=== PATIENT | female | born 1945 | race Caucasian/White ===

== ENCOUNTER 2019-03-31 16:10 | Inpatient (IN) | payer MEDICARE ==
[~2019-03-31] VITALS: Ht 162.6 cm; Wt 51.9 kg
[2019-03-31] MEDS ORDERED: BUDE3CAP2 PO (18:49)
[2019-03-31] MEDS ORDERED: POTA20TA89 PO (18:49)
[2019-03-31] MEDS ORDERED: LOPE2CAP PO (18:49)
[2019-03-31] MEDS ORDERED: MIRT15TA4 PO (18:49)
[2019-03-31] MEDS ORDERED: DRON2.5C PO (18:49)
[2019-03-31] MEDS ORDERED: PROC10TA2 PO (18:49)
[2019-03-31] MEDS ORDERED: COLE1TAB2 PO (18:49)
[2019-03-31] MEDS ORDERED: LEVO75TA5 PO (19:01)
[2019-03-31] MEDS ORDERED: ATOR20TA PO (19:01)
[2019-03-31] MEDS ORDERED: hydrALAzine 20 MG/ML, 1ML IVPush PRN (19:30)
[2019-03-31] MEDS ORDERED: ACETAMINOPHEN 325 MG TABLET PO PRN (19:30)
[2019-03-31] MEDS ORDERED: LOPERAMIDE 2 MG CAPSULE PO PRN (20:00)
[2019-03-31 20:07] VITALS: BP 102/64
[2019-03-31 20:08] LABS: BASOPHILS % (AUTO) 0 % (0-1); EOSINOPHILS % (AUTO) 0 % (1-7); LYMPHOCYTES # (AUTO) 0.97 x10^3/uL (1-3.4); LYMPHOCYTES % (AUTO) 24 % (22-44); MD NO; MEAN CORPUSCULAR HEMOGLOBIN 29.8 pg (27.0-34.8); MEAN CORPUSCULAR HGB CONC 32.5 g/dL (32.4-35.8); MEAN CORPUSCULAR VOLUME 91.9 fL (80-100); MEAN PLATELET VOLUME 7.7 fL (7.4-10.4); MONOCYTES % (AUTO) 8 % (2-9); NEUTROPHILS # (AUTO) 2.75 x10^3/uL (1.8-6.8); NEUTROPHILS % (AUTO) 68 % (42-75); PLATELET COUNT 213 x10^3/uL (130-400); RED BLOOD COUNT 3.69 x10^6/uL (3.82-5.3); RED CELL DISTRIBUTION WIDTH 13.8 % (9.6-15.2)
[2019-03-31] MEDS: MIRTAZAPINE 15 MG TABLET PO SCH (20:10)
[2019-03-31] MEDS: DRONABINOL 2.5 MG CAPSULE PO SCH (20:10)
[2019-03-31] MEDS: ATORVASTATIN 20 MG TABLET PO SCH (20:10)
[2019-03-31] MEDS: SODIUM CHLORIDE 0.9% 1,000 ML IV SCH (20:10)
[2019-03-31 20:17] LABS: ANION GAP 6 mmol/L (5-15); CALCIUM 8.5 mg/dL (8.5-10.1); CHLORIDE 111 mmol/L (98-107); CREATININE 0.88 mg/dL (0.55-1.02)
[2019-03-31] MEDS ORDERED: MOXI3DRO11 RIGHTEYE (23:54)
[2019-03-31] MEDS ORDERED: PRED5DRO20 RIGHTEYE (23:54)
[2019-04-01 01:26] VITALS: BP 106/62
[2019-04-01 04:54] LABS: BASOPHILS # (AUTO) 0.01 x10^3/uL (0-0.1); BASOPHILS % (AUTO) 0 % (0-1); EOSINOPHILS # (AUTO) 0.03 x10^3/uL (0-0.4); EOSINOPHILS % (AUTO) 1 % (1-7); LYMPHOCYTES # (AUTO) 1.63 x10^3/uL (1-3.4); LYMPHOCYTES % (AUTO) 35 % (22-44); MD NO; MEAN CORPUSCULAR HEMOGLOBIN 29.8 pg (27.0-34.8); MEAN CORPUSCULAR HGB CONC 32.7 g/dL (32.4-35.8); MEAN CORPUSCULAR VOLUME 91.1 fL (80-100); MONOCYTES # (AUTO) 0.49 x10^3/uL (0.2-0.8); MONOCYTES % (AUTO) 11 % (2-9); NEUTROPHILS # (AUTO) 2.44 x10^3/uL (1.8-6.8); NEUTROPHILS % (AUTO) 53 % (42-75); PLATELET COUNT 196 x10^3/uL (130-400); RED BLOOD COUNT 3.58 x10^6/uL (3.82-5.3); RED CELL DISTRIBUTION WIDTH 14.1 % (9.6-15.2)
[2019-04-01 05:04] LABS: ALANINE AMINOTRANSFERASE 13 U/L (12-78); ALBUMIN 2.7 g/dL (3.4-5.0); ANION GAP 7 mmol/L (5-15); CALCIUM 8.1 mg/dL (8.5-10.1); CHLORIDE 112 mmol/L (98-107)
[2019-04-01 05:14] LABS: ALKALINE PHOSPHATASE 44 U/L (45-117); BILIRUBIN,TOTAL 0.3 mg/dL (0.2-1.0); CREATININE 0.87 mg/dL (0.55-1.02); THYROID STIMULATING HORMONE 0.784 mIU/L (0.358-3.740)
[2019-04-01 07:14] VITALS: BP 119/66
[2019-04-01] MEDS: SODIUM CHLORIDE 0.9% 1,000 ML IV SCH ×2 (09:00→22:56)
[2019-04-01] MEDS: BUDESONIDE 3 MG CAP DR.ER PO SCH (09:00)
[2019-04-01] MEDS: COLESTIPOL 1 GM TABLET PO SCH ×2 (09:01→12:32)
[2019-04-01] MEDS: LEVOTHYROXINE 75 MCG TABLET PO SCH (09:01)
[2019-04-01] MEDS: DRONABINOL 2.5 MG CAPSULE PO SCH ×2 (09:01→20:35)
[2019-04-01 12:58] VITALS: BP 105/61
[2019-04-01] MEDS: MOXIFLOXACIN OPHTH O.5%, 3ML RIGHTEYE SCH ×2 (13:00→17:45)
[2019-04-01 13:16] LABS: CHOL/HDL RATIO 4.1; LDL/HDL RATIO 2.6 (0.5-3.0)
[2019-04-01] MEDS: predniSOLONE OPHTH SUSP 1%, 5ML RIGHTEYE SCH ×2 (16:39→20:35)
[2019-04-01 18:45] VITALS: BP 144/67
[2019-04-01 19:26] LABS: MICROSCOPIC NOT IND
[2019-04-01 19:49] LABS: CULTURE INDICATED? NO
[2019-04-01] MEDS: ATORVASTATIN 20 MG TABLET PO SCH (20:35)
[2019-04-01] MEDS: MIRTAZAPINE 15 MG TABLET PO SCH (20:35)
[2019-04-02 00:54] VITALS: BP 103/64
[2019-04-02 05:49] LABS: BASOPHILS # (AUTO) 0.02 x10^3/uL (0-0.1); BASOPHILS % (AUTO) 0 % (0-1); EOSINOPHILS # (AUTO) 0.02 x10^3/uL (0-0.4); EOSINOPHILS % (AUTO) 1 % (1-7); LYMPHOCYTES % (AUTO) 35 % (22-44); MD NO; MEAN CORPUSCULAR HEMOGLOBIN 30.1 pg (27.0-34.8); MEAN CORPUSCULAR HGB CONC 32.9 g/dL (32.4-35.8); MEAN CORPUSCULAR VOLUME 91.4 fL (80-100); MEAN PLATELET VOLUME 7.6 fL (7.4-10.4); MONOCYTES # (AUTO) 0.38 x10^3/uL (0.2-0.8); MONOCYTES % (AUTO) 7 % (2-9); NEUTROPHILS # (AUTO) 2.93 x10^3/uL (1.8-6.8); NEUTROPHILS % (AUTO) 57 % (42-75); PLATELET COUNT 206 x10^3/uL (130-400); RED BLOOD COUNT 3.62 x10^6/uL (3.82-5.3); RED CELL DISTRIBUTION WIDTH 13.9 % (9.6-15.2)
[2019-04-02] MEDS: predniSOLONE OPHTH SUSP 1%, 5ML RIGHTEYE SCH ×4 (05:53→21:00)
[2019-04-02 05:56] LABS: ALBUMIN 2.8 g/dL (3.4-5.0); ANION GAP 4 mmol/L (5-15); CALCIUM 8.1 mg/dL (8.5-10.1); CHLORIDE 109 mmol/L (98-107)
[2019-04-02 06:19] LABS: ALANINE AMINOTRANSFERASE 14 U/L (12-78); ALKALINE PHOSPHATASE 49 U/L (45-117); BILIRUBIN,TOTAL 0.4 mg/dL (0.2-1.0); CREATININE 0.86 mg/dL (0.55-1.02); TOTAL PROTEIN 6.1 g/dL (6.4-8.2)
[2019-04-02 07:00] VITALS: BP 105/63
[2019-04-02] MEDS ORDERED: MAGNESIUM SULFATE PMX 2GM/50ML 50 ML IV ONE (07:00)
[2019-04-02] MEDS: MOXIFLOXACIN OPHTH O.5%, 3ML RIGHTEYE SCH ×3 (08:00→18:00)
[2019-04-02] MEDS ORDERED: GADOBUTROL 7.5 MMOL/7.5 ML PFS ONE (08:47)
[2019-04-02] MEDS: COLESTIPOL 1 GM TABLET PO SCH (09:00)
[2019-04-02] MEDS: BUDESONIDE 3 MG CAP DR.ER PO SCH (10:11)
[2019-04-02] MEDS: DRONABINOL 2.5 MG CAPSULE PO SCH ×2 (10:11→21:13)
[2019-04-02] MEDS: LEVOTHYROXINE 75 MCG TABLET PO SCH (10:11)
[2019-04-02] MEDS: MAGNESIUM OXIDE 400 MG TABLET PO SCH (10:11)
[2019-04-02 12:14] VITALS: BP 101/58
[2019-04-02] MEDS: ACYCLOVIR 500 MG in SODIUM CHLORIDE 0.9% 100 ML IV SCH ×2 (14:26→22:12)
[2019-04-02] MEDS: SODIUM CHLORIDE 0.9% 1,000 ML IV SCH (17:03)
[2019-04-02 19:04] LABS: GLUCOSE, CSF 37 mg/dL (40-80); TOTAL PROTEIN,CSF 137 mg/dL (15-45)
[2019-04-02 20:52] VITALS: BP 97/59
[2019-04-02] MEDS: MIRTAZAPINE 15 MG TABLET PO SCH (21:13)
[2019-04-02] MEDS: ATORVASTATIN 20 MG TABLET PO SCH (21:13)
[2019-04-03 02:30] VITALS: BP 85/46
[2019-04-03] MEDS: SODIUM CHLORIDE 0.9% 1,000 ML IV SCH (05:12)
[2019-04-03] MEDS: ACYCLOVIR 500 MG in SODIUM CHLORIDE 0.9% 100 ML IV SCH ×3 (05:13→21:22)
[2019-04-03] MEDS: predniSOLONE OPHTH SUSP 1%, 5ML RIGHTEYE SCH ×4 (06:00→21:00)
[2019-04-03 06:06] LABS: BASOPHILS # (AUTO) 0.01 x10^3/uL (0-0.1); BASOPHILS % (AUTO) 0 % (0-1); EOSINOPHILS # (AUTO) 0.03 x10^3/uL (0-0.4); EOSINOPHILS % (AUTO) 0 % (1-7); LYMPHOCYTES # (AUTO) 1.39 x10^3/uL (1-3.4); LYMPHOCYTES % (AUTO) 19 % (22-44); MD NO; MEAN CORPUSCULAR HEMOGLOBIN 28.8 pg (27.0-34.8); MEAN CORPUSCULAR HGB CONC 31.6 g/dL (32.4-35.8); MEAN CORPUSCULAR VOLUME 91.1 fL (80-100); MEAN PLATELET VOLUME 7.6 fL (7.4-10.4); MONOCYTES % (AUTO) 7 % (2-9); NEUTROPHILS # (AUTO) 5.31 x10^3/uL (1.8-6.8); NEUTROPHILS % (AUTO) 73 % (42-75); PLATELET COUNT 199 x10^3/uL (130-400); RED BLOOD COUNT 3.77 x10^6/uL (3.82-5.3); RED CELL DISTRIBUTION WIDTH 13.5 % (9.6-15.2)
[2019-04-03 06:09] LABS: ANION GAP 6 mmol/L (5-15); CHLORIDE 109 mmol/L (98-107); CREATININE 1.18 mg/dL (0.55-1.02)
[2019-04-03 07:49] VITALS: BP 112/64
[2019-04-03] MEDS: COLESTIPOL 1 GM TABLET PO SCH (09:03)
[2019-04-03] MEDS: BUDESONIDE 3 MG CAP DR.ER PO SCH (09:03)
[2019-04-03] MEDS: LEVOTHYROXINE 75 MCG TABLET PO SCH (09:04)
[2019-04-03] MEDS: DRONABINOL 2.5 MG CAPSULE PO SCH ×2 (09:04→21:22)
[2019-04-03] MEDS: MAGNESIUM OXIDE 400 MG TABLET PO SCH (09:04)
[2019-04-03] MEDS: MOXIFLOXACIN OPHTH O.5%, 3ML RIGHTEYE SCH ×3 (09:04→17:00)
[2019-04-03 12:57] VITALS: BP 106/68
[2019-04-03 19:15] VITALS: BP 109/65
[2019-04-03] MEDS: MIRTAZAPINE 15 MG TABLET PO SCH (21:22)
[2019-04-03] MEDS: ATORVASTATIN 20 MG TABLET PO SCH (21:22)
[2019-04-04 01:29] VITALS: BP 118/70
[2019-04-04] MEDS: SODIUM CHLORIDE 0.9% 1,000 ML IV SCH ×2 (05:12→22:15)
[2019-04-04] MEDS: ACYCLOVIR 500 MG in SODIUM CHLORIDE 0.9% 100 ML IV SCH ×3 (05:12→22:15)
[2019-04-04] MEDS: predniSOLONE OPHTH SUSP 1%, 5ML RIGHTEYE SCH ×4 (05:13→21:00)
[2019-04-04 05:32] LABS: BASOPHILS # (AUTO) 0.02 x10^3/uL (0-0.1); BASOPHILS % (AUTO) 0 % (0-1); EOSINOPHILS # (AUTO) 0.05 x10^3/uL (0-0.4); EOSINOPHILS % (AUTO) 1 % (1-7); LYMPHOCYTES # (AUTO) 1.38 x10^3/uL (1-3.4); LYMPHOCYTES % (AUTO) 28 % (22-44); MD NO; MEAN CORPUSCULAR HGB CONC 32.6 g/dL (32.4-35.8); MONOCYTES # (AUTO) 0.46 x10^3/uL (0.2-0.8); MONOCYTES % (AUTO) 9 % (2-9); NEUTROPHILS # (AUTO) 2.99 x10^3/uL (1.8-6.8); NEUTROPHILS % (AUTO) 61 % (42-75); PLATELET COUNT 186 x10^3/uL (130-400); RED BLOOD COUNT 3.58 x10^6/uL (3.82-5.3); RED CELL DISTRIBUTION WIDTH 13.9 % (9.6-15.2)
[2019-04-04 05:42] LABS: CALCIUM 8.1 mg/dL (8.5-10.1); CHLORIDE 111 mmol/L (98-107)
[2019-04-04 05:46] LABS: ANION GAP 7 mmol/L (5-15); CREATININE 1.25 mg/dL (0.55-1.02)
[2019-04-04 06:51] VITALS: BP 112/68
[2019-04-04] MEDS: MOXIFLOXACIN OPHTH O.5%, 3ML RIGHTEYE SCH ×3 (08:00→18:25)
[2019-04-04] MEDS: DRONABINOL 2.5 MG CAPSULE PO SCH ×2 (09:49→22:15)
[2019-04-04] MEDS: MAGNESIUM OXIDE 400 MG TABLET PO SCH (09:49)
[2019-04-04] MEDS: LEVOTHYROXINE 75 MCG TABLET PO SCH (09:49)
[2019-04-04] MEDS: BUDESONIDE 3 MG CAP DR.ER PO SCH (09:49)
[2019-04-04] MEDS: COLESTIPOL 1 GM TABLET PO SCH (09:50)
[2019-04-04 13:55] VITALS: BP 113/68
[2019-04-04 19:12] VITALS: BP 123/73
[2019-04-04] MEDS: MIRTAZAPINE 15 MG TABLET PO SCH (22:15)
[2019-04-04] MEDS: ATORVASTATIN 20 MG TABLET PO SCH (22:15)
[2019-04-05 01:35] VITALS: BP 98/50
[2019-04-05] MEDS: predniSOLONE OPHTH SUSP 1%, 5ML RIGHTEYE SCH ×4 (05:39→20:23)
[2019-04-05] MEDS: ACYCLOVIR 500 MG in SODIUM CHLORIDE 0.9% 100 ML IV SCH ×3 (05:39→21:36)
[2019-04-05 05:43] LABS: BASOPHILS # (AUTO) 0.01 x10^3/uL (0-0.1); BASOPHILS % (AUTO) 0 % (0-1); EOSINOPHILS # (AUTO) 0.04 x10^3/uL (0-0.4); EOSINOPHILS % (AUTO) 1 % (1-7); LYMPHOCYTES % (AUTO) 36 % (22-44); MD NO; MEAN CORPUSCULAR HEMOGLOBIN 29.2 pg (27.0-34.8); MEAN CORPUSCULAR HGB CONC 32.5 g/dL (32.4-35.8); MEAN CORPUSCULAR VOLUME 89.7 fL (80-100); MEAN PLATELET VOLUME 7.5 fL (7.4-10.4); MONOCYTES # (AUTO) 0.46 x10^3/uL (0.2-0.8); MONOCYTES % (AUTO) 11 % (2-9); NEUTROPHILS # (AUTO) 2.19 x10^3/uL (1.8-6.8); NEUTROPHILS % (AUTO) 52 % (42-75); PLATELET COUNT 175 x10^3/uL (130-400); RED CELL DISTRIBUTION WIDTH 13.7 % (9.6-15.2)
[2019-04-05 05:47] LABS: CALCIUM 8.2 mg/dL (8.5-10.1); CHLORIDE 112 mmol/L (98-107)
[2019-04-05 05:53] LABS: ALANINE AMINOTRANSFERASE 12 U/L (12-78); ALBUMIN 2.8 g/dL (3.4-5.0); ALKALINE PHOSPHATASE 51 U/L (45-117); ANION GAP 6 mmol/L (5-15); BILIRUBIN,TOTAL 0.5 mg/dL (0.2-1.0); CREATININE 1.04 mg/dL (0.55-1.02); TOTAL PROTEIN 6.1 g/dL (6.4-8.2)
[2019-04-05 08:14] VITALS: BP 120/69
[2019-04-05] MEDS: MAGNESIUM OXIDE 400 MG TABLET PO SCH (08:27)
[2019-04-05] MEDS: DRONABINOL 2.5 MG CAPSULE PO SCH ×2 (08:27→20:23)
[2019-04-05] MEDS: BUDESONIDE 3 MG CAP DR.ER PO SCH (08:27)
[2019-04-05] MEDS: LEVOTHYROXINE 75 MCG TABLET PO SCH (08:28)
[2019-04-05] MEDS: COLESTIPOL 1 GM TABLET PO SCH (08:28)
[2019-04-05] MEDS: MOXIFLOXACIN OPHTH O.5%, 3ML RIGHTEYE SCH ×3 (08:28→17:27)
[2019-04-05] MEDS: SODIUM CHLORIDE 0.9% 1,000 ML IV SCH (12:35)
[2019-04-05 13:02] VITALS: BP 102/60
[2019-04-05 19:24] VITALS: BP 129/74
[2019-04-05] MEDS: ATORVASTATIN 20 MG TABLET PO SCH (20:23)
[2019-04-05] MEDS: MIRTAZAPINE 15 MG TABLET PO SCH (20:23)
[2019-04-06] MEDS: SODIUM CHLORIDE 0.9% 1,000 ML IV SCH ×2 (02:13→16:41)
[2019-04-06 02:41] VITALS: BP 156/64
[2019-04-06] MEDS: ACYCLOVIR 500 MG in SODIUM CHLORIDE 0.9% 100 ML IV SCH ×3 (05:16→21:20)
[2019-04-06] MEDS: predniSOLONE OPHTH SUSP 1%, 5ML RIGHTEYE SCH ×4 (05:16→20:10)
[2019-04-06 06:47] VITALS: BP 118/69
[2019-04-06] MEDS: BUDESONIDE 3 MG CAP DR.ER PO SCH (09:17)
[2019-04-06] MEDS: MAGNESIUM OXIDE 400 MG TABLET PO SCH (09:17)
[2019-04-06] MEDS: MOXIFLOXACIN OPHTH O.5%, 3ML RIGHTEYE SCH ×3 (09:17→17:21)
[2019-04-06] MEDS: DRONABINOL 2.5 MG CAPSULE PO SCH ×2 (09:17→20:10)
[2019-04-06] MEDS: COLESTIPOL 1 GM TABLET PO SCH (09:17)
[2019-04-06] MEDS: LEVOTHYROXINE 75 MCG TABLET PO SCH (09:17)
[2019-04-06 12:40] VITALS: BP 107/67
[2019-04-06 18:48] VITALS: BP 118/70
[2019-04-06] MEDS: ATORVASTATIN 20 MG TABLET PO SCH (20:09)
[2019-04-06] MEDS: MIRTAZAPINE 15 MG TABLET PO SCH (20:10)
[2019-04-07] VITALS (7 sets, daily range): BP systolic 94–145; BP diastolic 59–74
[2019-04-07] MEDS: ACYCLOVIR 500 MG in SODIUM CHLORIDE 0.9% 100 ML IV SCH ×3 (05:35→22:04)
[2019-04-07] MEDS: predniSOLONE OPHTH SUSP 1%, 5ML RIGHTEYE SCH ×4 (05:36→19:57)
[2019-04-07] MEDS: SODIUM CHLORIDE 0.9% 1,000 ML IV SCH ×2 (05:36→19:57)
[2019-04-07] MEDS: MOXIFLOXACIN OPHTH O.5%, 3ML RIGHTEYE SCH ×3 (09:14→16:23)
[2019-04-07] MEDS: DRONABINOL 2.5 MG CAPSULE PO SCH ×2 (09:14→19:57)
[2019-04-07] MEDS: BUDESONIDE 3 MG CAP DR.ER PO SCH (09:14)
[2019-04-07] MEDS: MAGNESIUM OXIDE 400 MG TABLET PO SCH (09:14)
[2019-04-07] MEDS: COLESTIPOL 1 GM TABLET PO SCH (09:14)
[2019-04-07] MEDS: LEVOTHYROXINE 75 MCG TABLET PO SCH (09:17)
[2019-04-07] MEDS: MIRTAZAPINE 15 MG TABLET PO SCH (19:57)
[2019-04-07] MEDS: ATORVASTATIN 20 MG TABLET PO SCH (19:57)
[2019-04-08 02:10] VITALS: BP 120/62
[2019-04-08] MEDS: ACYCLOVIR 500 MG in SODIUM CHLORIDE 0.9% 100 ML IV SCH ×2 (05:22→13:42)
[2019-04-08] MEDS: SODIUM CHLORIDE 0.9% 1,000 ML IV SCH ×2 (05:22→12:47)
[2019-04-08] MEDS: predniSOLONE OPHTH SUSP 1%, 5ML RIGHTEYE SCH ×3 (05:24→16:24)
[2019-04-08 07:02] VITALS: BP 123/75
[2019-04-08] MEDS: MOXIFLOXACIN OPHTH O.5%, 3ML RIGHTEYE SCH ×3 (10:09→17:00)
[2019-04-08] MEDS: MAGNESIUM OXIDE 400 MG TABLET PO SCH (10:09)
[2019-04-08] MEDS: COLESTIPOL 1 GM TABLET PO SCH (10:09)
[2019-04-08] MEDS: LEVOTHYROXINE 75 MCG TABLET PO SCH (10:09)
[2019-04-08] MEDS: DRONABINOL 2.5 MG CAPSULE PO SCH (10:09)
[2019-04-08] MEDS: BUDESONIDE 3 MG CAP DR.ER PO SCH (10:09)
[2019-04-08 12:58] VITALS: BP 118/66
[2019-04-08] MEDS ORDERED: [UNRECOGNIZED DRUG - CODE] IV (15:56)
== END 2019-04-08 17:33 | DRG 97 ==
LOC: 4WST 18:09
PROVIDERS: ADMIT Internal Medicine; ATTEND Internal Medicine
PROC: 009U3ZX Drainage of Spinal Canal, Percutaneous Approach, Diagnostic (ICD-10-PCS; 2019-04-02)
PROC: B01B1ZZ Fluoroscopy of Spinal Cord using Low Osmolar Contrast (ICD-10-PCS; 2019-04-02)
PROC: 02HV33Z Insertion of Infusion Device into Superior Vena Cava, Percutaneous Approach (ICD-10-PCS; principal; 2019-04-08)
PROC: B548ZZA Ultrasonography of Superior Vena Cava, Guidance (ICD-10-PCS; 2019-04-08)
PROC: B5181ZA Fluoroscopy of Superior Vena Cava using Low Osmolar Contrast, Guidance (ICD-10-PCS; 2019-04-08)
DX: B00.4 Herpesviral encephalitis (principal); G93.41 Metabolic encephalopathy; E22.2 Syndrome of inappropriate secretion of antidiuretic hormone; Z68.1 Body mass index [BMI] 19.9 or less, adult; R27.8 Other lack of coordination; E83.42 Hypomagnesemia; E88.09 Other disorders of plasma-protein metabolism, not elsewhere classified; D63.8 Anemia in other chronic diseases classified elsewhere; F32.9 Major depressive disorder, single episode, unspecified; K22.2 Esophageal obstruction; M32.9 Systemic lupus erythematosus, unspecified; R62.7 Adult failure to thrive; E03.9 Hypothyroidism, unspecified; E86.0 Dehydration; Z66 Do not resuscitate; G04.81 Other encephalitis and encephalomyelitis; R27.0 Ataxia, unspecified; K52.832 Lymphocytic colitis; Z87.440 Personal history of urinary (tract) infections; Z87.11 Personal history of peptic ulcer disease; Z79.51 Long term (current) use of inhaled steroids; Z79.899 Other long term (current) drug therapy; Z83.2 Family history of diseases of the blood and blood-forming organs and certain disorders involving the immune mechanism
CPT/HCPCS: 36415; 36573; 70544; 70553; 77003; 80048; 80053; 80061; 81003; 82607; 82945; 83735; 84100; 84157; 84443; 85025; 86255; 86480; 86592; 86651; 86652; 86653; 86654; 86694; 86735; 86765; 86787; 86788; 86789; 87252; 87529; 87532; 87798; 89051; A9585; G0378; J0133; Q0167; C1751; J3475; J7030